=== PATIENT | female | born 1970 | race American Indian/Alaskan Native ===

== ENCOUNTER 2019-03-14 18:50 | Emergency (ER) | payer SELFPAY ==
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
== END 2019-03-14 20:43 | disposition left against medical advice (07) ==
LOC: ED 18:50
DX: M54.5 Low back pain (principal); Z53.21 Procedure and treatment not carried out due to patient leaving prior to being seen by health care provider